=== PATIENT | male | born 1985 | race Two or more races ===

== ENCOUNTER 2016-11-02 04:24 | Inpatient (IN) | payer BC, MEDICAID ==
[~2016-11-02] VITALS: Ht 182.9 cm; Wt 136.1 kg
[2016-11-02 08:36] VITALS: BP 119/73
[2016-11-02 11:58] VITALS: BP 132/65
[2016-11-02] MEDS ORDERED: Norco 5mg/325mg tab ORAL PRN (12:30)
[2016-11-02] MEDS ORDERED: Morphine Sulfate 2mg/ml Inj IVP PRN (12:30)
[2016-11-02] MEDS ORDERED: Piperacillin/Tazobactam 3.375 GM in D5W 110 ML IVPB SCH (14:00)
--- NOTE | 2016-11-02 14:57 | Infectious Diseases Prog Note ---
Assessment/Plan Assessment/Plan Full consult dictated: A) 1) right knee swelling, pain and fever of 101.6 - likely gout, ? concomitant septic knee 2) s/p aspiration of right knee at outside facility - 32, 100 wbc, 95 % polys , + monosodium urate crystals seen 3) aspiration culture pending 4) allergy - vancomycin 5) no ivda or trauma P) 1) zyvox and rocephin 2) check outside aspiration culture of right knee, check labs and uric acid level 3) check MRI 4) ortho evaluation 5) d/w Dr. Yee 6) d/w RN and patient 7) thank you Subjective Allergies: Coded Allergies: VANCOMYCIN (Verified Allergy, Unknown, Itching, 11/02/16) Objective Vital Signs Last 24 Hour Vital Signs Date Time Temp Pulse Resp B/P Pulse Ox O2 Delivery O2 Flow Rate FiO2 11/02/16 11:58 98.1 88 21 132/65 98 Nasal Cannula 11/02/16 08:36 97.7 89 20 119/73 100 Room Air Height (Feet): 6 Weight (Pounds): 300 Current Medications Medications (Trade) Dose Ordered Sig/Cynthia Route PRN Reason Start Time Stop Time Status Last Admin Dose Admin Acetaminophen (Tylenol) 650 mg Q6H PRN ORAL TEMP>101/ARANDA 11/02/16 12:30 12/02/16 12:29 Acetaminophen/ Hydrocodone Bitart 1 tab 1 tab Q6H PRN ORAL Mild Pain (Pain Scale 1-3) 11/02/16 12:30 11/09/16 12:29 Ceftriaxone Sodium 1 gm/ Dextrose 50 ml @ 100 mls/hr Q24H IVPB 11/02/16 14:45 11/09/16 14:44 UNV Dextrose (Dextrose 50%) STAT PRN IV Hypoglycemia 11/02/16 12:30 12/02/16 12:29 Diphenhydramine HCl (Benadryl) 25 mg Q6H PRN ORAL Itching/Pruritis 11/02/16 12:30 12/02/16 12:29 Heparin Sodium (Porcine) (Heparin 5000 units/ml) 5,000 units EVERY 12 HOURS SUBQ 11/02/16 21:00 12/02/16 20:59 Linezolid (Zyvox) 300 ml @ 300 mls/hr EVERY 12 HOURS IVPB 11/02/16 21:00 11/09/16 20:59 UNV Morphine Sulfate (Morphine Sulfate) 2 mg Q4H PRN IVP Severe Pain (Pain Scale 7-10) 11/02/16 12:30 11/09/16 12:29 Ondansetron HCl (Zofran) 4 mg Q4H PRN IVP Nausea & Vomiting 11/02/16 12:30 12/02/16 12:29 Piperacillin Sod/ Tazobactam Sod 3.375 gm/Dextrose 110 ml @ 27.5 mls/hr Q8HR IVPB 11/02/16 14:00 11/09/16 13:59 MARVIN SANTOS Nov 02, 2016 14:57
--- NOTE | 2016-11-02 15:30 | History & Physical ---
History and Physical History & Physicial The patient was seen and examined at bedside and all new and available data was reviewed in the patients chart. Last 24 Hour Vital Signs Date Time Temp Pulse Resp B/P Pulse Ox O2 Delivery O2 Flow Rate FiO2 11/02/16 11:58 98.1 88 21 132/65 98 Nasal Cannula 11/02/16 08:36 97.7 89 20 119/73 100 Room Air Abx: Rocephin ORTH and ID consult (Patient was seen earlier today. Signature timestamp does not reflect patient encounter time) Parish Contreras MD, MD Nov 02, 2016 15:30
[2016-11-02 16:00] VITALS: BP 138/87
[2016-11-02] MEDS: cefTRIAXone 1 GM in D5W 50 ML IVPB SCH (19:30)
[2016-11-02 20:08] VITALS: BP 128/80
[2016-11-02] MEDS: Heparin 5000 units/ml inj SUBQ SCH (21:00)
[2016-11-03] VITALS: BP 122/77
--- NOTE | 2016-11-03 01:28 | History and Physical Report ---
DATE OF ADMISSION: 11/02/2016 CHIEF COMPLAINT: Right knee pain. HISTORY OF PRESENT ILLNESS: This is a 31-year-old gentleman, denies any past medical history or past surgical history, who presented to the hospital from home after he was noted to have the right knee swollen, progressively worsening. The patient started having a fever of 101.6. The patient initially was evaluated at [facility] ER and subsequently was transferred to the [facility] for further evaluation and workup. While the patient was in the emergency room at [facility], the patient underwent arthrocentesis of the right knee and subsequently was diagnosed with right knee septic joint and subsequently was started on broad-spectrum antibiotics, vancomycin and Zosyn. PAST MEDICAL HISTORY: None. PAST SURGICAL HISTORY: None. MEDICATIONS AT HOME: None. SOCIAL HISTORY: No smoking, alcohol, or drugs. 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 FAMILY HISTORY: Noncontributory. REVIEW OF SYSTEMS: Mostly as above. Denies any dysuria, frequency, hematuria, or hematochezia. Denies any hemoptysis or hematochezia. Denies any suicidal or homicidal ideation. Denies any loss of consciousness. He complains of right knee pain. Denies any double vision. Denies any nausea or vomiting. PHYSICAL EXAMINATION: VITAL SIGNS: Temperature of 98.1, pulse of 88, respirations 21, and blood pressure 132/65. GENERAL: The patient is awake, responsive, in no acute distress. HEAD AND NECK: Pupils are equal and reactive to light. Extraocular movements are intact. Neck is supple. No JVD. LUNGS: Good air entry. No wheezes or rales. HEART: S1 and S2. Regular rhythm. No gallops. ABDOMEN: Soft, nondistended, and nontender. Mildly obese. EXTREMITIES: No cyanosis, clubbing, or edema. Right knee has tenderness to touch with limited range of motion on flexion, and fluid effusion was noted. Gait is intact. GENITOURINARY: Refused and deferred. RECTAL: Refused and deferred. PSYCHIATRIC: Mood and affect are intact. LABORATORY DATA: Laboratory from today is still pending. ASSESSMENT: 1. Right knee septic joint. 2. Mild obesity. PLAN: We will start the patient on broad-spectrum antibiotics with Rocephin and azithromycin. We will follow up with Dr. Polo Thompson from ID. Consider MRI of the right knee. Discussed with Dr. Ronny Zepeda from Orthopedics. We will follow up with the laboratory as well as try to obtain cultures from the [facility] and discussed with the patient extensively with regard to the care we provide. Parish Yee M.D. DR: BRENNEN JOB#: [id number] CC:
[2016-11-03 04:00] VITALS: BP 119/79
[2016-11-03 07:21] LABS: BASOPHILS % (AUTO) 0.5 % (0.0-2.0); EOSINOPHILS % (AUTO) 1.3 % (0.0-3.0); LYMPHOCYTES % (AUTO) 26.7 % (20.0-45.0); MEAN CORPUSCULAR HEMOGLOBIN 26.6 PG (27.0-31.0); MEAN CORPUSCULAR HGB CONC 32.6 G/DL (32.0-36.0); MEAN CORPUSCULAR VOLUME 82 FL (80-99); MEAN PLATELET VOLUME 6.2 FL (6.5-10.1); MONOCYTES % (AUTO) 8.2 % (1.0-10.0); NEUTROPHILS % (AUTO) 63.3 % (45.0-75.0); PLATELET COUNT 292 K/UL (150-450); RED BLOOD COUNT 4.81 M/UL (4.70-6.10); RED CELL DISTRIBUTION WIDTH 13.1 % (11.6-14.8); WHITE BLOOD COUNT 9.3 K/UL (4.8-10.8)
[2016-11-03 07:26] LABS: ANION GAP 15 (5-15); CALCIUM 9.3 mg/dL (8.6-10.2); CARBON DIOXIDE 25 mEQ/L (20-30); CHLORIDE 101 mEQ/L (98-107); GLOMERULAR FILTRATION RATE > 60 mL/min (>60); HEMOLYSIS 2; MAGNESIUM 1.8 mg/dL (1.7-2.5); PHOSPHORUS 3.4 mg/dL (2.5-4.8); POTASSIUM 4.3 mEQ/L (3.4-4.9); SODIUM 141 mEQ/L (135-145); URIC ACID 8.5 mg/dL (3.0-7.5)
[2016-11-03 08:00] VITALS: BP 150/89
[2016-11-03] MEDS: Heparin 5000 units/ml inj SUBQ SCH ×2 (09:00→20:19)
[2016-11-03 12:00] VITALS: BP 135/91
[2016-11-03 16:00] VITALS: BP 108/66
[2016-11-03] MEDS: cefTRIAXone 1 GM in D5W 50 ML IVPB SCH (16:00)
--- NOTE | 2016-11-03 16:00 | Infectious Diseases Prog Note ---
Assessment/Plan Assessment/Plan A) 1) right knee swelling, pain and fever of 101.6 - likely gout, less likely septic arthritis - clinically much improved - d/w ortho, Dr. Zepeda, and feels less likely septic joint 2) s/p aspiration of right knee at outside facility - 32, 100 wbc, 95 % polys , + monosodium urate crystals seen 3) aspiration culture pending, mri results pending 4) allergy - vancomycin 5) no ivda or trauma P) 1) consider discontinue abx 2) check outside aspiration culture of right knee, check labs and uric acid level 3) check MRI 4) ortho evaluation 5) d/w Dr. Yee 6) d/w RN and patient Subjective Constitutional: Denies: chills, fatigue HEENT: Denies: congestion Respiratory: Denies: shortness of breath Cardiovascular: Denies: chest pain Gastrointestinal/Abdominal: Denies: diarrhea, nausea, vomiting Neurologic: Denies: headache Musculoskeletal: Reports: other - right knee pain better, better rom Allergies: Coded Allergies: VANCOMYCIN (Verified Allergy, Unknown, Itching, 11/02/16) Objective Vital Signs Last 24 Hour Vital Signs Date Time Temp Pulse Resp B/P Pulse Ox O2 Delivery O2 Flow Rate FiO2 11/03/16 12:00 98.2 87 20 135/91 98 Room Air 11/03/16 08:00 98.2 96 20 150/89 97 Room Air 11/03/16 04:00 98.1 93 18 119/79 97 Room Air 11/03/16 00:00 98.2 95 18 122/77 97 Room Air 11/02/16 20:08 98.0 90 18 128/80 97 Room Air 11/02/16 16:00 97.8 92 18 138/87 97 Room Air Height (Feet): 6 Weight (Pounds): 300 General Appearance: no acute distress HEENT: normocephalic, atraumatic, anicteric, mucous membranes moist Respiratory/Chest: lungs clear, normal breath sounds, no respiratory distress Cardiovascular: normal rate, regular rhythm, no gallop/murmur, no JVD Abdomen: normal bowel sounds, soft, non tender, no organomegaly, non distended Extremities: no cyanosis Skin: no rash 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1) L Neutrophils (%) (Auto) 63.3 % (45.0-75.0) Lymphocytes (%) (Auto) 26.7 % (20.0-45.0) Monocytes (%) (Auto) 8.2 % (1.0-10.0) Eosinophils (%) (Auto) 1.3 % (0.0-3.0) Basophils (%) (Auto) 0.5 % (0.0-2.0) Sodium Level 141 mEQ/L (135-145) Potassium Level 4.3 mEQ/L (3.4-4.9) Chloride Level 101 mEQ/L (98-107) Carbon Dioxide Level 25 mEQ/L (20-30) Anion Gap 15 (5-15) Blood Urea Nitrogen 11 mg/dL (7-23) Creatinine 1.0 mg/dL (0.7-1.2) Estimat Glomerular Filtration Rate > 60 mL/min (>60) Glucose Level 99 mg/dL (74-106) Uric Acid 8.5 mg/dL (3.0-7.5) H Calcium Level 9.3 mg/dL (8.6-10.2) Phosphorus Level 3.4 mg/dL (2.5-4.8) Magnesium Level 1.8 mg/dL (1.7-2.5) Current Medications Medications (Trade) Dose Ordered Sig/Cynthia Route PRN Reason Start Time Stop Time Status Last Admin Dose Admin Acetaminophen (Tylenol) 650 mg Q6H PRN ORAL TEMP>101/ARANDA 11/02/16 12:30 12/02/16 12:29 Acetaminophen/ Hydrocodone Bitart 1 tab 1 tab Q6H PRN ORAL Mild Pain (Pain Scale 1-3) 11/02/16 12:30 11/09/16 12:29 Ceftriaxone Sodium 1 gm/ Dextrose 50 ml @ 100 mls/hr Q24H IVPB 11/02/16 16:00 11/09/16 15:59 11/02/16 19:30 Dextrose (Dextrose 50%) STAT PRN IV Hypoglycemia 11/02/16 12:30 12/02/16 12:29 Diphenhydramine HCl (Benadryl) 25 mg Q6H PRN ORAL Itching/Pruritis 11/02/16 12:30 12/02/16 12:29 Heparin Sodium (Porcine) (Heparin 5000 units/ml) 5,000 units EVERY 12 HOURS SUBQ 11/02/16 21:00 12/02/16 20:59 Linezolid (Zyvox) 300 ml @ 300 mls/hr EVERY 12 HOURS IVPB 11/02/16 21:00 11/09/16 20:59 11/03/16 08:57 Morphine Sulfate (Morphine Sulfate) 2 mg Q4H PRN IVP Severe Pain (Pain Scale 7-10) 11/02/16 12:30 11/09/16 12:29 Ondansetron HCl (Zofran) 4 mg Q4H PRN IVP Nausea & Vomiting 11/02/16 12:30 12/02/16 12:29 MARVIN SANTOS Nov 03, 2016 16:00
[2016-11-03 19:00] VITALS: BP 112/69
--- NOTE | 2016-11-03 19:09 | Geriatric Neurology Consult ---
DATE OF CONSULTATION: 11/03/2016 ORTHOPEDIC CONSULTATION: CONSULTING PHYSICIAN: Ronny Zepeda M.D. CHIEF COMPLAINT: Right knee pain. HISTORY OF PRESENT ILLNESS: The patient is a pleasant 31-year-old gentleman, who presents with acute onset of right knee pain. He had significant pain. He was seen at an outside facility, where the aspiration done of his knee. He subsequently was admitted here with concerns for septic joint. Orthopedic consultation was obtained for further care and recommendation. The patient does not need previous trauma. No issues with instability. No changes in recent activities. The patient does not have any history of previous gout or any inflammatory arthropathy family history. PHYSICAL EXAMINATION: GENERAL: The patient is alert and oriented. He is resting comfortably in bed. VITAL SIGNS: Afebrile. Stable vital signs. EXTREMITIES: Right knee examination shows moderate effusion. Minimal pain with patellar grinding, minimal pain on medial and lateral joint line. Range of motion is 0 to 120. Right knee aspiration from outside facility, did show a positive evidence of crystals. ASSESSMENT: Right gout versus pseudogout. DISCUSSION: At this point, I think that given his examination, he does not have a septic joint. He has some type of inflammatory arthropathy at this point, what I recommend is stopping the antibiotics and monitoring. Recommend checking uric acid. He has continued swelling and pain and the uric acid is positive, may benefit from aspiration and cortisone injection, but I would wait to do at least for a week off the antibiotics to make sure that he does not have some type of some acute infection. The patient can follow with me in a week or 2 if he has continued issues. Ronny Zepeda M.D. DR: NAT JOB#: [id number] CC: Parish Yee M.D.; Fax#: [phone]
--- NOTE | 2016-11-03 20:27 | Discharge Summary ---
Discharge Summary Hospital Course Date of Admission Nov 02, 2016 at 06:35 Date of Discharge Admitting Diagnosis HPI Umesh Ricketts is a 31 year old male who was admitted on Nov 02, 2016 at 06:35 for Septic Joint Hospital Course Discharge Discharge Disposition Patient was discharged to Discharge Diagnoses: Parish Yee MD Nov 03, 2016 20:27
[2016-11-03] MEDS ORDERED: Tubing IV Secondary IV ONE (20:55)
[2016-11-03] MEDS ORDERED: NS 275ml ONE (20:55)
[2016-11-03] MEDS ORDERED: IBUPROFEN400 MG ORAL (20:57)
--- NOTE | 2016-11-03 22:40 | Consultation ---
DATE OF CONSULTATION: 11/03/2016 INFECTIOUS DISEASE CONSULTATION CONSULTING PHYSICIAN: Polo Thompson M.D. ATTENDING PHYSICIAN: Parish Yee M.D. REASON FOR CONSULTATION: Possible septic arthritis of the right knee. The patient's chief complaint coming in is possible septic arthritis of the right knee. HISTORY OF PRESENT ILLNESS: This is a very pleasant 31-year-old male, who has no significant past medical history. The patient presented to [facility] with right knee swelling and right knee pain. The patient has had it over the last 48 hours, one to one and half days prior to the presentation. The patient had an aspiration of the right knee and it showed the following: It showed cloudy fluid, 95% PMNs, also had 32,100 white cells. It also showed monosodium urate crystals. This was suggestive of an acute gouty attack of the right knee. Infectious Disease consultation was requested for antibiotic management. The patient was allergic to vancomycin. The patient was started on Rocephin and Zyvox yesterday. I saw the patient yesterday. Today, his body fluid culture at 24 hours was negative. The patient was also seen by Orthopedic Surgery, Dr. Zepeda. I discussed the case with him, who felt that this is most likely a gouty attack of the right knee and less likely septic arthritis, secondary to bacterial infection. Case was discussed with Dr. Yee. REVIEW OF SYSTEMS: Constitutional: He did have a fever when he was at [place], however, he has had no fevers at this time. His temperature maximum is 101.6. The patient has no chills, no night sweats or weight loss. Head and neck: No thrush or dysphagia. Cardiac: No chest pain. Gastrointestinal: No nausea, vomiting, or diarrhea. Genitourinary: No dysuria or frequency. Pulmonary: No shortness of breath, cough, or sputum production. Skin: No rash or itching. Extremities: No extremity pain. Neurological: No seizures. He does have the right knee swelling and pain on presentation. His range of motion is significantly improved today. PAST MEDICAL HISTORY: Otherwise negative. No diabetes or hypertension. ALLERGIES: Vancomycin, he said he had a rash. FAMILY HISTORY: Noncontributory. SOCIAL HISTORY: Negative for smoking, alcohol, or drug use. He denied intravenous drug abuse. MEDICATIONS: Upon reviewing the MAR, the patient is on following medications: He is on heparin prophylaxis. He is on linezolid, Rocephin, and ceftriaxone, which I will discontinue. He is on Tylenol, morphine, Zofran, Benadryl, and Alexander. Please see medications in the medical order past medical history in the medical order. PHYSICAL EXAMINATION: VITAL SIGNS: Temperature 98.2, pulse rate 87, respiratory rate 20, blood pressure 135/91, and saturation 98%. GENERAL: Alert, responsive, in no acute distress, oriented x3. HEAD AND NECK: Oral exam, no thrush. Eye exam, no icterus. Neck is supple. No JVD. No sinus tenderness. Normocephalic. No facial droop. No neck stiffness. HEART: Regular. No gallop or murmur. No friction rub. ABDOMEN: Soft. Positive bowel sounds. Nontender. LUNGS: Clear. No rhonchi or rales. SKIN: No rash or dermatitis. MUSCULOSKELETAL: His range of motion of the right knee is significantly improved versus yesterday, less swelling. There is no significant redness noted. Legs are without cellulitis. PERIPHERAL VASCULAR: No cyanosis or gangrene. RECTAL: Deferred. GENITOURINARY: No Horowitz. Line sites is without phlebitis. NEUROLOGIC: Intact. Nonfocal. Alert and oriented x3. LABORATORY AND DIAGNOSTIC DATA: Laboratory data as follows, creatinine is 1.0. White count 9.3, hemoglobin 12.8. As I said, the arthrocentesis of the right knee or aspiration of the right knee was consistent with cloudy fluid, 32,100 white cells, and 95% PMNs. Synovial fluid culture up to date 24 hours is negative, I do not have a Gram stain as that was done at the outside facility. Uric acid level is elevated at 8.5 and this synovial fluid analysis, there was monosodium urate crystals that were positive. ASSESSMENT AND PLAN: 1. The patient most likely has an acute gouty attack of the right knee with monosodium urate crystals seen with fevers. Less likely this is a septic joint. His white cell count is less than 50,000 and his body fluid culture at this time 24 hours is negative, this was prior to antibiotics started. At this time, also I discussed the case with Dr. Zepeda, Orthopedic Surgery who felt that this is probably not a septic knee. In addition, the patient has had dramatic improvement over 24 hours, which is highly suggestive of a gouty attack versus a septic joint. I will discontinue the Rocephin and Zyvox. An MRI was also done and the results are pending and this was also discussed with Dr. Yee. 2. Elevated uric acid and gout. 3. Allergies to vancomycin. 4. Social history is negative. No history of IV drug use. 5. Case was discussed with the RN and the patient. Polo Thompson M.D. DR: CHARANJIT JOB#: [id number] CC:
--- NOTE | 2016-11-04 10:01 | Diagnostic Imaging Report ---
Indication: Right knee pain Technique: MRI of the right knee was performed on a 1.5 Siria magnet without administration of intravascular or intra-articular contrast material and the following sequences were obtained: Axial PD fat-sat; sagittal PD and PD fat-sat; coronal T1, PD fat-sat and STIR Comparison: None Findings: The medial and lateral menisci are intact. The anterior and posterior cruciate ligaments are intact. The medial collateral ligamentous complex and the lateral and posterolateral stabilizing structures including the fibular collateral ligament, biceps femoris, popliteus tendon and the iliotibial band are intact. The extensor mechanism including the quadriceps and patellar tendons and the medial and lateral retinacula are intact. There is a large joint effusion. No popliteal cyst is identified. There is a prominent medial plica. Linear low signal is noted of cartilage overlying the median patellar ridge and lateral patellar facet series 8 image 10 suggestive of low-grade chondrosis/fissure. Impression: Large joint effusion. Joint aspiration recommended for further evaluation as indicated. No evidence of meniscal tear or ligamentous injury. Patellar chondrosis as above.
--- NOTE | 2016-11-04 12:09 | Discharge Summary ---
DATE OF ADMISSION: 11/02/2016 DATE OF DISCHARGE: 11/03/2016 HISTORY AND HOSPITAL COURSE: This is a 31-year-old gentleman denies any past medical history or past surgical, who was presented to hospital complaining about the right knee pain. Shortly after initial evaluation, the patient was noted that the fever of 101.6 degrees, and subsequently The patient has septic joint. The patient was seen initially at [facility] had arthrocentesis was done and was started on vancomycin and Zosyn. Shortly after initial evaluation, was transferred to [facility]. Throughout the hospital course, the patient was followed Dr. Dr. Ronny Zepeda from orthopedic. His status gradually improved on broad-spectrum antibiotics. His culture was essentially unremarkable. MRI of the knee was done, however, results were still pending and the the patient is being discharged home today to be followed my office next Sunday for a follow up MRI. FINAL DIAGNOSES: 1. Right knee swelling and fever less likely septic arthritis possible inflammatory joint. 2. Mild obesity. MEDICATION ON DISCHARGE: Motrin 400 mg by mouth every 8 hours as needed for pain. ACTIVITY: As tolerated. DIET: Would be regular diet. FOLLOWUP: Advised the patient to follow up my office next Sunday and advised him to not go back to work until he is seen in the office. Parish Yee M.D. DR: GERSON/kevin JOB#: [id number] CC:
--- NOTE | 2016-11-24 09:10 | Consultation ---
DATE OF CONSULTATION: 11/03/2016 RHEUMATOLOGICAL CONSULTATION CONSULTING PHYSICIAN: Sarahy Mireles M.D. REASON FOR CONSULTATION: I was asked by Dr. Yee to assess this 31-year-old patient because of the monarticular synovitis. History Of Present Illness: The patient lives in an apartment and has been in stable condition until two days prior to the present admission. He developed sudden onset of right knee swelling, but the pain was moderate. There was no skin hypersensitivity. Over the next 24 hours, the pain became more, swollen and extremely painful associated with fever. He went to [facility]. He underwent arthrocentesis in the emergency room where the liquid withdrawn from the knee was whitish. He was told by the emergency room physician that there were only few crystals , but there was also very few WBCs. The patient received intravenous medication, but he does not know whether it was antibiotic or steroid and the patient was discharged. The pain persisted and the patient was admitted and the patient transferred to [facility] because of insurance consideration. Here, the patient was assessed by infectious diseases specialist and by orthopedist, who have different view in regard to the patient's pathology. The patient was placed on cefepime 02:12 ceftriaxone and according to the patient, his knee has nearly completely recovered. PAST MEDICAL HISTORY: He denied any surgical or medical antecedent. ALLERGIES: He developed allergy to vancomycin while being in [facility] and vancomycin had to be stopped. MEDICATIONS: He does not take any medication. FAMILY HISTORY: Both parents are alive and in good health. His father is 56 and in good health. His mother is 50 and in good health. Brothers do not have any connective tissue disease. He has two brothers who also live in good health. He has no children. Social History: He is single. He was born in [birth year] [place] for nine years. 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 HABITS: The patient denied any smoking, drinking, or any use of illicit drugs. Review Of Systems: Cardiovascular: The patient denied any chest pain, shortness of breath, palpitations, or dizziness. Pulmonary: The patient denied any cough, wheezing, or expectoration. Gastrointestinal: His appetite is moderate. His weight is stable. No dysphagia. No dyspepsia. No bowel movement disorder. He does have rarely gastroesophageal reflux disease symptom, for which he does not take any medication. Genitourinary: The patient denied any dysuria, frequency, incontinence, or nocturia. Joints: The patient is having pain, swelling, stiffness, cold extremities, photosensitivity, dry eyes, and alopecia of the scalp. The knee is painful 04:10 up and down with minimal discomfort. Skin: Not hypersensitive. Central Nervous System: His sleep is with good quality. He has no numbness, tingling, or seizure order, and has no headache. PHYSICAL EXAMINATION: VITAL SIGNS: Blood pressure is 119/79, his pulse is 99, respirations were 18, and temperature 98.1 degrees. HEENT: Eyes were normal. Pupils were round, equal, and reactive to light. Sclerae were white. Conjunctiva were pink. Extraocular movements were normal. Temporal arteries were palpable bilaterally. There was no bilateral temporal wasting. Visual walker to confrontation were normal. Neglect sign was negative. There was no conjunctivitis or iridocyclitis. ENT, mucous membranes were not dehydrated. Auditory canals were clear and tympanic membranes could not be visualized. Nasal cavity was not congested. Nasal septum was intact. Soft palate was free of ulceration. Pharynx was clear from exudate and tonsillar hypertrophy. Uvula arnulfo to phonation. Tongue was moist, midline, and normally papillated. NECK: Supple. There was no goiter. No mass. No lymphadenopathy. No JVD. No bruits. Carotid upstroke was 2+. LUNGS: Clear. HEART: PMI was in the fourth left intercostal space in midclavicular line. Normal S1 and normal S2. There was no murmur. No arrhythmia. No S3. No S4. No pericardial rub. ABDOMEN: Soft, obese, and nontender without organomegaly. There was no mass palpable. Normal bowel sounds without bruits. There was no guarding. No rebound tenderness. No ascites. No hernia. No CVA tenderness. Liver span was 8 cm, mostly nontender. EXTREMITIES: No cyanosis, no clubbing, and no edema. Extremities were warm. Neurological: Reflexes in biceps, triceps, and brachioradialis were present. 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 Plantar were in flexion. Cranial nerves II through XII were symmetric and equal. Cerebellar function, there was no tremor. No nystagmus. No extrapyramidal rigidity. Sensory exam to pinprick, cotton touch, and position were grossly normal. Motor strength was 5/5 against resistance in upper and lower extremities in proximal and distal muscles. Joints: Passive range of motion in both shoulder and elbows, 07:06 , PIP, and DIP were normal. There was no loss of hyperextension. Passive range of motion of hips, right knee, right ankle and foot were normal. The area over the right knee was not warm, slightly smaller, minimally tender. On evaluation, there is no any skin hypersensitivity. Passive range of motion was normal with minimal loss of hyperextension. 08:15 gastrocnemius muscles are . LABORATORY AND DIAGNOSTIC DATA: Hemoglobin is 12.8, hematocrit 39.2, MCV of 82, WBC of 9.3, and platelets are 292,000. His BUN and creatinine are 11 and 1.0 respectively. His sodium was 141, potassium 4.3, chloride 101, and CO2 of 25. His glucose was 99. His uric acid is 8.5. Calcium 9.3, phosphorus 3.4, magnesium was 1.8. No imaging study available at the time of this dictation. Impression and plan: The patient has monarticular synovitis with very little evidence that the patient has septic knee. The absence of port of entry synovial fluid. At the site of the abscess 10:12 also with rapid increase response to antibiotic is typical of septic knee, however, with synovitis of uric acid the absence of hypersensitivity of the skin syndrome without any steroid or colchicine. Level of uric acid is . The presence of uric acid crystal without etiology of rapid response of the knee without the use of any antiinflammatory medication. Right knee x-ray should be ordered. ESR and CRP will be ordered as well. The issue of stopping the antibiotic is complex since the patient did not receive any other treatment antibiotic even though he does not fit any of the classic pattern . I will review the imaging study and laboratory test in the a.m. Thank you, Dr. Yee, for asking me to participate in this challenging case. Sarahy Mireles M.D. DR: HUANG JOB#: [id number] CC:
== END 2016-11-03 21:13 | disposition home or self-care (01) | DRG 554 ==
LOC: 4W 06:35
DX: M10.9 Gout, unspecified (principal); Z68.41 Body mass index [BMI] 40.0-44.9, adult; E66.9 Obesity, unspecified
CPT/HCPCS: 36415; 80048; 83735; 84100; 84550; 85025; 87040